=== PATIENT | male | born 1955 | race Caucasian/White ===

== ENCOUNTER 2018-02-24 10:20 | Outpatient (CLI) | payer MEDICARE ==
--- NOTE | 2018-02-24 12:08 | CT ---
CT PULMONARY LUNG SCAN: Date: 02/24/18 HISTORY: Z12.2, encounter for screening for lung cancer. COMPARISON: CT lung cancer screening dated 01/09/17. FINDINGS: Lung screen specific (Lung-RADS): Negative. There are minor findings not suspicious for lung cancer such as morphologically benign nodules, noncalcified nodules with a mean diameter of 4.0 mm or less, or ground-glass opacities with a mean diameter of 5.0 mm or less. Potentially significant incidentals (Lung-RADS Category S): None. Other incidentals: Mild coronary artery calcifications. No adenopathy. No thoracic spine compression fracture. Pulmonary incidentals: Mild central lobular emphysema. Small scattered calcified granulomas. IMPRESSION: 1. Lung-RADS Category 2: Benign appearance or behavior. Continue annual screening with low dose CT in 12 months. 2. Lung-RADS Category S: Negative. No new or unknown potentially significant incidental findings re quiring urgent additional evaluation. 3. Unchanged 4.0 mm left perifissural nodule in left major fissure. POS: JOSUE
== END 2018-02-24 10:21 | disposition home or self-care (01) ==
LOC: CT 10:20
PROVIDERS: ATTEND Family Medicine
DX: Z87.891 Personal history of nicotine dependence (principal)
CPT/HCPCS: G0297

== ENCOUNTER 2019-03-20 10:25 | Outpatient (CLI) | payer MEDICARE ==
--- NOTE | 2019-03-20 11:34 | CT ---
CT PULMONARY LUNG SCAN: History: [Personal history of nicotine dependence. Z12.2 encounter for screening for lung cancer] Comparison: CT chest 2018 Findings: Lung screening specific (Lung-RADS): Negative. No suspicious pulmonary nodules. Potentially significant incidentals (Lung-RADS category S): No abnormalities requiring urgent additio nal evaluation. Pulmonary incidentals: Advanced centrilobular pulmonary emphysema. No pneumothorax. No effusion. Other incidentals: Mild vascular calcifications. No adenopathy. Prior cholecystectomy. Limited evalua tion of the upper abdomen is unremarkable. Hypodensity superior pole left kidney is similar. No thoracic spine compression fracture. No suspicious osteolytic or osteoblastic lesions. No acute displaced rib fracture. Impression: 1. Lung-RADS Category 2: Benign appearance or behavior. Recommendation: Low dose CT screening in one year. 2. Lung-RADS category S: Negative. No new or unknown potentially significant incidental findings requ iring urgent additional evaluation. Transcribed Date/Time: 03/20/2019 12:17 PM
== END 2019-03-20 10:26 | disposition home or self-care (01) ==
LOC: CT 10:25
PROVIDERS: ATTEND Family Medicine
DX: Z12.2 Encounter for screening for malignant neoplasm of respiratory organs (principal); Z87.891 Personal history of nicotine dependence
CPT/HCPCS: G0297

== ENCOUNTER 2020-03-07 13:44 | Outpatient (CLI) | payer MEDICARE, OTHER ==
--- NOTE | 2020-03-07 14:20 | CT ---
EXAM: CT Pulmonary Lung Scan PROVIDED CLINICAL HISTORY: Tobacco abuse. Yearly follow-up evaluation. COMPARISON: 03/20/2019 FINDINGS: Again noted is evidence of mild emphysematous changes seen scattered within the lungs greater in the upper lobes. No discrete pulmonary nodule, mass, or pleural effusion is seen. Vascular calcifications are again seen in the coronary arteries as well as in the thoracic aorta. Lack of intravenous contrast limits evaluation of the mediastinal structures, but no enlarged lymph n odes are appreciated. Again noted is a stable exophytic hypodense lesion superior pole left kidney. Post surgical changes related to cholecystectomy are again noted. CT pulmonary lung scan is overall stable compared to prior exam. IMPRESSION: Lung RADS category 2: Benign appearance where behavior. Low-dose CT pulmonary lung scan is recommende d in one year. 2. Lung RADS category S: Negative. No new potentially significant incidental findings requiring addit ional evaluation.
== END 2020-03-07 13:45 | disposition home or self-care (01) ==
LOC: BICCT 13:44
PROVIDERS: ATTEND Family Medicine
DX: Z12.2 Encounter for screening for malignant neoplasm of respiratory organs (principal); Z87.891 Personal history of nicotine dependence
CPT/HCPCS: G0297

== ENCOUNTER 2020-06-08 08:06 | Outpatient (CLI) | payer MEDICARE, OTHER ==
--- NOTE | 2020-06-08 13:19 | CT ---
CT ABDOMEN AND PELVIS WITH AND WITHOUT CONTRAST: INDICATION: Mid abdominal pain. This arteriovenous malformation is limited due to lack of imaging through the lower abdomen and pelvi s. COMPARISON: Comparison is made to prior CT abdomen and pelvis of 11/05/2015. FINDINGS: Lung montesinos are clear. The liver, spleen, and pancreas appear unremarkable. Adrenal glands appear unremarkable. Kidneys ar e unremarkable. There are 2 small cysts from the left kidney, the largest medially measuring approxi mately 2.5 cm. These are stable. No hydronephrosis or renal mass lesion identified. The visualized small bowel loops are normal caliber. The visualized colon is unremarkable. There ar e scattered diverticula seen in the visualized portions of the left colon. Aorta shows atherosclerot ic calcification but normal caliber. No mass, adenopathy, or free fluid identified. There are degenerative changes in the visualized spine, particularly in the lower thoracic and upper lumbar spine with loss of disk space at the t12-L1, L1-2, and L2-3 levels with prominent degenerative changes at these levels. Postoperative changes are noted at L5-S1. IMPRESSION: No acute abdominal finding. POS: AGW
== END 2020-06-08 08:07 | disposition home or self-care (01) ==
LOC: SCSCT 08:06
PROVIDERS: ATTEND Family Medicine
DX: R10.9 Unspecified abdominal pain (principal)
CPT/HCPCS: 74170; 82565

== ENCOUNTER 2020-07-25 06:14 | Outpatient (CLI) | payer MEDICARE, OTHER ==
[2020-07-25 14:03] LABS: INR-International Normal Ratio 0.9; PTT 25.2 sec (22.9-36.1); Prothrombin Time 12.4 sec (12.0-14.7)
[2020-07-25 14:25] LABS: Hemoglobin 14.1 g/dL (14.0-18.0); Mean Corpuscular HGB CONC 32.6 g/dL (32.0-36.0); Mean Corpuscular Hemoglobin 29.9 pg (27.0-31.0); Mean Corpuscular Volume 91.5 fL (78.0-98.0); Mean Platelet Volume 8.4 fL (7.4-10.4); Platelet Count 215 thou/uL (130-400); RBC Distribution Width 12.7 % (11.5-14.5); Red Blood Cell (RBC) Count 4.73 mill/uL (4.70-6.10); White Blood Cell (WBC) Count 6.9 thou/uL (4.8-10.8)
[2020-07-25 14:48] LABS: Bacteria/HPF None Seen HPF (None Seen); Bilirubin Negative (Negative); Blood, Urine Negative (Negative); Clarity Clear (Clear); Glucose, Urine (Dipstick) Normal (Negative); Ketone, Urine Negative (Negative); Leukocyte Negative Leu/uL (Negative); Mucous/LPF Rare LPF (<2+); Nitrite Negative (Negative); Protein, Urine (Dipstick) Negative (Neg-Trace); RBC/HPF 0-3 HPF (0-3); Specific Gravity, Urine 1.013 (1.002-1.036); Squamous Epithelial None Seen HPF (0-3); Urobilinogen Normal mg/dL (Less than 2); WBC/HPF 0-3 HPF (0-3)
[2020-07-25 14:50] LABS: Anion Gap 14 mmol/L (10-20); BUN (Urea Nitrogen) 12 mg/dL (8.4-25.7); Calc. Creatinine Clearance 0 mL/min (70-130); Calcium 9.4 mg/dL (7.8-10.44); Carbon Dioxide 27 mmol/L (23-31); Chloride 103 mmol/L (98-107); Estimated GFR-MDRD 74; Glucose 128 mg/dL (80-115); Potassium 4.7 mmol/L (3.5-5.1); Sodium 139 mmol/L (136-145)
[2020-07-26 13:22] LABS: SARS-CoV-2 MS2 Positive; SARS-CoV-2 N Gene Negative; SARS-CoV-2 S Gene Negative; SARS-CoV-2 by NAA Not Detected (NotDetected); SARS-CoV-2 orf1ab Negative
== END 2020-07-25 06:15 | disposition home or self-care (01) ==
LOC: LABBT 06:14
PROVIDERS: ATTEND Urology
DX: Z01.818 Encounter for other preprocedural examination (principal); Z20.828 Contact with and (suspected) exposure to other viral communicable diseases; N35.016 Post-traumatic urethral stricture, male, overlapping sites; N31.9 Neuromuscular dysfunction of bladder, unspecified; N35.011 Post-traumatic bulbous urethral stricture; E11.40 Type 2 diabetes mellitus with diabetic neuropathy, unspecified; R33.9 Retention of urine, unspecified
CPT/HCPCS: 80048; 81001; 85027; 85610; 85730; 87086; 93005; U0003; 87635; 93010

== ENCOUNTER 2020-07-28 11:44 | Day surgery (SDC) | payer MEDICARE, OTHER ==
[2020-07-26 13:16] VITALS: BMI 29.5
[~2020-07-28 11:44] MED LIST: Lidocaine 1% PF 5 ML VIAL ONE; PROPOFOL 200 MG/20 ML VIAL ONE
[2020-07-28] MEDS ORDERED: Levofloxacin 500 mg/D5W 100 ml Premix Bag ONE (12:01)
[2020-07-28] MEDS ORDERED: Fentanyl 100 MCG/2 ML VIAL ONE (16:50)
[2020-07-28] MEDS ORDERED: HYDROcodone/Acetaminophen 5/325 mg Tablet ONE (18:13)
--- NOTE | 2020-07-29 00:44 | OP ---
DATE OF PROCEDURE: 07/28/2020 SERVICE: Urology. PREOPERATIVE DIAGNOSIS: Pendulous urethral stricture. POSTOPERATIVE DIAGNOSIS: Pendulous urethral stricture. PROCEDURE PERFORMED: NephroMax urethral balloon dilation. INDICATION FOR PROCEDURE: Mr. Vizcaino is a 64-year-old white male with diabetes and neurogenic bladder with urinary retention. He manages with CIC. Unfortunately, he began having increasing difficulty catheterizing himself. He was found to have a long segment of strictured urethra from the fossa navicularis to approximately 2 cm proximal to this. In the office, we were unable to navigate the cystoscope passed that. I recommended a balloon dilation of this area. I quoted him approximately 60% to 70% chance of remain patent. Risks and benefits additionally were discussed, and he has agreed to proceed forward. DESCRIPTION OF PROCEDURE: After identification of armband and verification of consent, the patient was brought back to the operating room, where he underwent general anesthesia with an LMA. He was then placed in a dorsal lithotomy position, and prepped and draped in usual sterile fashion. After appropriate time-out, a lubricated 22-Mauritanian rigid cystoscope was passed into the meatus up to the level of the stricture, which was approximately 2 cm into the urethra. At this point, an Amplatz Super Stiff wire was passed the urethral stricture and into the bladder. The cystoscope was then removed as it was too distal to remain in place. The NephroMax balloon dilator was then passed into the urethra and positioned over the level of the stricture. The balloon was inflated to 14 atmospheres and 30-Mauritanian at 12 cm for complete dilation of the urethra. After holding this in place for 30 seconds, the balloon was taken down, and the wire and NephroMax balloon dilator were completely removed. The cystoscope was then passed back into the urethra, which passed very easily past the area of stricture. The remainder of the urethra appeared normal without any evidence of splitting or tearing. There were no additional strictures noted. The prostate was hypertrophic and had previously been demonstrated an outpatient cystoscopy, but without significant obstruction. The bladder appeared normal with mild erythema, probably from areas of previous CIC usage. The ureters in orthotopic location. There were no bladder stones, tumors, cellules, diverticulum, or mucosal lesions noted other than the mild inflammatory findings. A Super Stiff wire was then placed back in through the cystoscope into the bladder to confirm its good location, and then the cystoscope was removed. A 16-Mauritanian [place] tip catheter was placed with ease over the Super Stiff wire into the bladder. The Super Stiff wire was removed, and 10 mL of sterile water was placed into the balloon. The patient was then taken out of positioning, had the catheter affixed to gravity drainage and to a StatLock. He was then awakened, taken to PACU for recovery in stable condition. COMPLICATIONS: None. ESTIMATED BLOOD LOSS: Minimal. RETAINED TUBES AND DRAINS: 16-Mauritanian [place] tip catheter to gravity drainage. SPECIMENS: None. DISPOSITION: The patient will be discharged home and follow up with me in approximately 1 week for a void trial. He will then resume his CIC. If he continues to have recurrent stricturing, we may need to discuss a different strategy including urethroplasty versus ileovesicostomy depending on what the patient desires. Suprapubic tube could also be an option. Job ID: [id number]
== END 2020-07-28 19:20 | disposition home or self-care (01) ==
LOC: SDC 11:44
PROVIDERS: ATTEND Urology
PROC: 0T7D8ZZ Dilation of Urethra, Via Natural or Artificial Opening Endoscopic (ICD-10-PCS; principal; 2020-07-28)
DX: N35.016 Post-traumatic urethral stricture, male, overlapping sites (principal); N31.9 Neuromuscular dysfunction of bladder, unspecified; N40.1 Benign prostatic hyperplasia with lower urinary tract symptoms; R33.8 Other retention of urine; E11.40 Type 2 diabetes mellitus with diabetic neuropathy, unspecified; F41.9 Anxiety disorder, unspecified; F32.9 Major depressive disorder, single episode, unspecified; G47.33 Obstructive sleep apnea (adult) (pediatric); I10 Essential (primary) hypertension; E78.5 Hyperlipidemia, unspecified; K21.9 Gastro-esophageal reflux disease without esophagitis; G89.29 Other chronic pain; M54.9 Dorsalgia, unspecified; Z87.891 Personal history of nicotine dependence; Z79.1 Long term (current) use of non-steroidal anti-inflammatories (NSAID); Z79.82 Long term (current) use of aspirin; Z79.84 Long term (current) use of oral hypoglycemic drugs; Z79.899 Other long term (current) drug therapy; Z98.1 Arthrodesis status
CPT/HCPCS: J1956; J2704; J3010

== ENCOUNTER 2021-03-15 09:57 | Outpatient (CLI) | payer MEDICARE, OTHER | END 2021-03-15 09:58 | disposition home or self-care (01) | LOC: BICCT 09:57 | PROVIDERS: ATTEND Family Medicine | DX: Z12.2 Encounter for screening for malignant neoplasm of respiratory organs (principal); Z87.891 Personal history of nicotine dependence; J44.9 Chronic obstructive pulmonary disease, unspecified; R91.1 Solitary pulmonary nodule | CPT/HCPCS: 71271 ==

== ENCOUNTER 2021-09-19 09:49 | Outpatient (CLI) | payer MEDICARE, OTHER | END 2021-09-19 09:50 | disposition home or self-care (01) | LOC: BICCT 09:49 | PROVIDERS: ATTEND Family Medicine | DX: Z12.2 Encounter for screening for malignant neoplasm of respiratory organs (principal); R91.1 Solitary pulmonary nodule; J43.2 Centrilobular emphysema; J98.4 Other disorders of lung; I25.10 Atherosclerotic heart disease of native coronary artery without angina pectoris; Z87.891 Personal history of nicotine dependence | CPT/HCPCS: 71271 ==